=== PATIENT | female | born 1980 | race Caucasian/White ===

== ENCOUNTER 2023-04-19 17:47 | Emergency (ER) | payer OTHER ==
[~2023-04-19] VITALS: Ht 165.1 cm; Wt 52.2 kg
[2023-04-19 17:53] VITALS: BP 157/91; PULSE 100; RESP 15; TEMP 97.9; O2SAT 99
[2023-04-19] MEDS ORDERED: ACET-2619 PO (18:32)
== END 2023-04-19 18:49 | disposition home or self-care (01) ==
LOC: MED 17:47
DX: M25.562 Pain in left knee (principal); V49.88XA Car occupant (driver) (passenger) injured in other specified transport accidents, initial encounter; Y93.89 Activity, other specified; Y92.89 Other specified places as the place of occurrence of the external cause; Y99.8 Other external cause status
CPT/HCPCS: 73562; 99283